=== PATIENT | female | born 1965 | race African-American/Black ===

== ENCOUNTER 2025-04-25 18:19 | Emergency (ER) | payer MEDICAID ==
[~2025-04-25] VITALS: Ht 167.6 cm; Wt 95.0 kg
[2025-04-25 18:30] VITALS: TEMP 36.8; O2SAT 99
[2025-04-25] MEDS: MAGNESIUM/ALUMINUM HYDROXIDE/SIMETHICONE 30ML UDC PO ONE (19:35)
[2025-04-25] MEDS: VISCOUS LIDOCAINE 2% 15 ML UDC MM ONE (19:35)
[2025-04-25] MEDS: ONDANSETRON HCL 4MG/2ML INJ IV ONE (19:36)
[2025-04-25] MEDS: DIPHENHYDRAMINE 25MG CAPSULE PO ONE (19:36)
[2025-04-25 20:00] LABS: BASOPHILS % 0.9 % (0.0-2.0); EOSINOPHILS % 1.9 % (0.0-5.0); HEMATOCRIT. 42.1 % (36.0-48.0); HEMOGLOBIN. 13.6 g/dL (12.0-16.0); LYMPHOCYTES % 24.6 % (20.0-50.0); MEAN PLATELET VOLUME 8.3 fl (7.4-10.4); MONOCYTES % 11.3 % (2.0-8.0); NEUTROPHILS % 61.3 % (40.0-76.0); PLATELET 266 x1000/uL (130-400); RED BLOOD CELL COUNT 5.31 mill/uL (4.2-5.4); RED CELL DISTRIBUTION WIDTH 14.7 % (11.6-14.6)
[2025-04-25 20:16] LABS: CREATININE 0.9 mg/dL (0.6-1.0)
[2025-04-25 20:17] LABS: TROPONIN I HIGH SENSITIVITY < 4 ng/L (3.0-34); UREA NITROGEN BLOOD 8 mg/dL (9-23)
[2025-04-25 20:18] LABS: ASPARTATE AMINOTRANSFERASE 15 IU/L (<34); BILIRUBIN DIRECT < 0.1 mg/dL (<=3.0); PROTEIN TOTAL 8.1 g/dL (6.0-8.3)
[2025-04-25 20:19] LABS: BILIRUBIN TOTAL 0.3 mg/dL (0.1-1.0)
[2025-04-25] MEDS ORDERED: OMEP20CA14 MT (20:22)
[2025-04-25] MEDS ORDERED: MAG-55 MT (20:27)
[2025-04-25 20:40] VITALS: BP 145/98; PULSE 100; RESP 16; O2SAT 98
== END 2025-04-25 20:41 | disposition home or self-care (01) ==
LOC: ER 18:19
DX: K21.9 Gastro-esophageal reflux disease without esophagitis (principal); I10 Essential (primary) hypertension; Z79.899 Other long term (current) drug therapy
CPT/HCPCS: 99285; 96374; 71045; 80076; 80048; 83690; 83735; 85025; 85379; 84484; 36415; 93005; Q0163; J2405